=== PATIENT | male | born 1965 | race Caucasian/White ===

== ENCOUNTER 2017-07-28 17:20 | Emergency (ER) | payer MEDICAID, OTHER ==
[~2017-07-28] VITALS: Ht 175.3 cm; Wt 95.3 kg
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
[2017-07-28] MEDS ORDERED: ONDANSETRON HCL/PF 4 MG/2 ML VIAL ONE (17:51)
[2017-07-28] MEDS ORDERED: MORPHINE SULFATE INJ 4 MG/ML DISP.SYRIN ONE (17:52)
[2017-07-28] MEDS ORDERED: MORPHINE SULFATE INJ 2 MG/ML DISP.SYRIN IV ONE (18:00)
[2017-07-28] MEDS ORDERED: ONDANSETRON HCL/PF 4 MG/2 ML VIAL IVP ONE (18:00)
--- NOTE | 2017-07-28 18:01 | NUR ---
URINE AND BLOOD SAMPLE SENT TO LAB
[2017-07-28 18:05] LABS: BASOPHILS % (AUTO) 0.3 % (0.0-2.0); EOSINOPHILS % (AUTO) 0.4 % (0.0-6.0); HEMATOCRIT 45 % (39-51); HEMOGLOBIN 15.7 g/dL (13.5-17.5); LYMPHOCYTES # (AUTO) 1.5 /CMM (0.8-4.8); LYMPHOCYTES % (AUTO) 12.8 % (20.0-44.0); MEAN CORPUSCULAR HEMOGLOBIN 32 PG (26.0-33.0); MEAN CORPUSCULAR HGB CONC 35 g/dl (31.0-36.0); MEAN CORPUSCULAR VOLUME 90 fL (80-96); MONOCYTES # (AUTO) 0.8 /CMM (0.1-1.30); MONOCYTES % (AUTO) 6.3 % (2.0-12.0); NEUTROPHILS # (AUTO) 9.6 /CMM (1.8-8.9); NEUTROPHILS % (AUTO) 80.2 % (43.0-81.0); PLATELET COUNT (AUTO) 193 /CMM (150-450); RDW COEFFICIENT OF VARIATION 13.1 (11.5-15.0); RED BLOOD CELL COUNT(AUTO) 4.95 MIL/uL (4.5-6.0)
[2017-07-28 18:11] LABS: APPEARANCE,URINE CLEAR (CLEAR); BILIRUBIN,URINE NEGATIVE (NEGATIVE); BLOOD, URINE NEGATIVE Ery/uL (NEGATIVE); COLOR,URINE YELLOW (YELLOW); KETONES,URINE NEGATIVE (NEGATIVE); LEUKOCYTE ESTERASE ,URINE NEGATIVE (NEGATIVE); NITRITE, URINE NEGATIVE (NEGATIVE); PROTEIN,URINE NEGATIVE (NEGATIVE); UGLUCOSE NEGATIVE (NEGATIVE); UROBILINOGEN,URINE 0.2 EU/dL (0.2)
[2017-07-28 18:27] LABS: ALBUMIN 4.6 g/dL (3.4-5.0); BILIRUBIN,DIRECT 0.1 mg/dL (0.0-0.2); BILIRUBIN,TOTAL 0.8 mg/dL (0.2-1.0); CALCIUM, SERUM 9.3 mg/dL (8.5-10.1); CREATININE 1.2 mg/dL (0.6-1.3); POTASSIUM 3.7 mmol/L (3.5-5.1); TOTAL PROTEIN, SERUM 8.3 g/dL (6.4-8.2)
[2017-07-28 21:01] VITALS: BP 122/80
--- NOTE | 2017-07-28 21:08 | NUR ---
Patient discharged to home in stable condition. Written and verbal after care instructions given. Patient verbalizes understanding of instruction.IV removed. Catheter intact and site benign. Pressure and 4x4 applied to site. No bleeding noted.
== END 2017-07-28 21:07 | disposition home or self-care (01) ==
LOC: ER 17:22
DX: R10.13 Epigastric pain (principal); R55 Syncope and collapse; R07.9 Chest pain, unspecified; F31.9 Bipolar disorder, unspecified
CPT/HCPCS: 36415; 70450; 71045; 76700; 80048; 80076; 81001; 83690; 85025; 85730; 87086; 99285; A4606; Z7610; 81000-TC; J2270; J2405

== ENCOUNTER 2017-08-20 13:41 | Emergency (ER) | payer MEDICAID ==
[~2017-08-20] VITALS: Ht 182.9 cm; Wt 102.1 kg
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
[2017-08-20 14:03] LABS: BASOPHILS # (AUTO) 0.2 /CMM (0.0-0.2); BASOPHILS % (AUTO) 2.5 % (0.0-2.0); EOSINOPHILS # (AUTO) 0.2 /CMM (0.0-0.7); EOSINOPHILS % (AUTO) 2.1 % (0.0-6.0); HEMATOCRIT 38 % (39-51); HEMOGLOBIN 13.1 g/dL (13.5-17.5); LYMPHOCYTES # (AUTO) 1.3 /CMM (0.8-4.8); LYMPHOCYTES % (AUTO) 16.8 % (20.0-44.0); MEAN CORPUSCULAR HEMOGLOBIN 31 PG (26.0-33.0); MEAN CORPUSCULAR HGB CONC 35 g/dl (31.0-36.0); MEAN CORPUSCULAR VOLUME 89 fL (80-96); MONOCYTES # (AUTO) 0.5 /CMM (0.1-1.30); MONOCYTES % (AUTO) 6.3 % (2.0-12.0); NEUTROPHILS # (AUTO) 5.7 /CMM (1.8-8.9); NEUTROPHILS % (AUTO) 72.3 % (43.0-81.0); PLATELET COUNT (AUTO) 214 /CMM (150-450); RDW COEFFICIENT OF VARIATION 12.4 (11.5-15.0); WHITE BLOOD COUNT (AUTO) 7.9 K/uL (4.3-11.0)
[2017-08-20 14:13] LABS: CALCIUM, SERUM 8.3 mg/dL (8.5-10.1); CARBON DIOXIDE 25 mmol/L (21-32); CHLORIDE 107 mmol/L (98-107); CREATININE 0.9 mg/dL (0.6-1.3); GLUCOSE 100 mg/dL (74-106); POTASSIUM 3.2 mmol/L (3.5-5.1); SODIUM SERUM 138 mmol/L (136-145); UREA NITROGEN, BLOOD 12 mg/dL (7-18)
[2017-08-20 14:17] LABS: INR 0.94 (0.85-1.15)
[2017-08-20 14:22] LABS: TROPONIN I < 0.017 ng/mL (0.00-0.056)
[2017-08-20] MEDS ORDERED: ASPIRIN EC 325 MG TABLET.DR PO ONE ×2 (14:40→15:00)
[2017-08-20 15:18] LABS: ACETAMINOPHEN < 2 ug/ml (10-30); ALCOHOL, BLOOD < 3 mg/dL (0-0); SALICYLATE 2.5 mg/dL (2.8-20.0)
--- NOTE | 2017-08-20 15:18 | NUR ---
Patient is resting comfortably in bed with eyes closed. Easily aroused. VSS
[2017-08-20 15:45] VITALS: BP 149/86
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
--- NOTE | 2017-08-20 15:53 | NUR ---
Patient does not wish to proceed with medical care recommended by Dr. DAKOTA JACKSON. Patient given information related to possible complications, up to and including , which could occur as a result of leaving the hospital at this time. Patient verbalizes understanding of risks involved due to leaving against medical advice. Patient has signed AMA form.
--- NOTE | 2017-08-20 16:06 | NUR ---
PATIENT LEFT THE ER WITH STEADY GAIT.
== END 2017-08-20 16:09 | disposition left against medical advice (07) ==
LOC: ER 13:42
DX: R07.9 Chest pain, unspecified (principal); G89.29 Other chronic pain; F31.9 Bipolar disorder, unspecified; Z88.8 Allergy status to other drugs, medicaments and biological substances; Z79.82 Long term (current) use of aspirin; Z53.20 Procedure and treatment not carried out because of patient's decision for unspecified reasons
CPT/HCPCS: 36415; 71045; 80048; 80329; 83880; 84484; 85025; 85730; 93005 ×2; 99285; A4606; G0480 ×2; Z7610

== ENCOUNTER 2017-09-07 23:56 | Emergency (ER) | payer MEDICAID ==
[~2017-09-07] VITALS: Ht 175.3 cm; Wt 90.7 kg
--- NOTE | 2017-09-08 00:05 | NUR ---
CALLED FOR TRIAG. PT YELLED AND THREW URINE THAT WAS GIVEN TO HIM FOR URINE SAMPLE CUP ON THE GROUND.
--- NOTE | 2017-09-08 00:59 | NUR ---
APPEARS SLEEPING IN THE CHAIR. WHEN WOKEN UP STATES "LET ME REST".
--- NOTE | 2017-09-08 01:29 | NUR ---
REMAINS "SLEEPING" AND "LEAVE ME ALONE" HE SAYS. CHARGE NURSE NOTIFIED.
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
--- NOTE | 2017-09-08 04:23 | NUR ---
PT BB SELF WITH C/O "I HAVE DEPRESSION AND WANT TO HURT SELF; AM TIRED". PT DENIES PLAN. PT AAOX4. RESP EVEN AND UNLABORED. NO S/S OF ACUTE DISTRESS NOTED. VSS. PT SAFETY AND COMFORT MEASURES IN PLACE. PT GOWNED PLACED ON MONITOR AND POX. AWAITING MD FOR EVAL.
[2017-09-08 04:39] LABS: BASOPHILS # (AUTO) 0.1 /CMM (0.0-0.2); EOSINOPHILS # (AUTO) 0.4 /CMM (0.0-0.7); EOSINOPHILS % (AUTO) 5.8 % (0.0-6.0); HEMATOCRIT 41 % (39-51); HEMOGLOBIN 14.1 g/dL (13.5-17.5); LYMPHOCYTES # (AUTO) 1.8 /CMM (0.8-4.8); LYMPHOCYTES % (AUTO) 22.8 % (20.0-44.0); MEAN CORPUSCULAR HEMOGLOBIN 31 PG (26.0-33.0); MEAN CORPUSCULAR HGB CONC 34 g/dl (31.0-36.0); MEAN CORPUSCULAR VOLUME 90 fL (80-96); MONOCYTES # (AUTO) 0.6 /CMM (0.1-1.30); MONOCYTES % (AUTO) 8.1 % (2.0-12.0); NEUTROPHILS # (AUTO) 4.8 /CMM (1.8-8.9); NEUTROPHILS % (AUTO) 62.3 % (43.0-81.0); PLATELET COUNT (AUTO) 217 /CMM (150-450); RDW COEFFICIENT OF VARIATION 12.8 (11.5-15.0); RED BLOOD CELL COUNT(AUTO) 4.55 MIL/uL (4.5-6.0); WHITE BLOOD COUNT (AUTO) 7.7 K/uL (4.3-11.0)
[2017-09-08 04:50] LABS: CALCIUM, SERUM 8.5 mg/dL (8.5-10.1); CARBON DIOXIDE 23 mmol/L (21-32); CHLORIDE 107 mmol/L (98-107); CREATININE 0.8 mg/dL (0.6-1.3); GLUCOSE 123 mg/dL (74-106); POTASSIUM 3.6 mmol/L (3.5-5.1); SODIUM SERUM 142 mmol/L (136-145); UREA NITROGEN, BLOOD 19 mg/dL (7-18)
[2017-09-08 05:00] LABS: ALANINE AMINOTRANSFERASE 39 U/L (12-78); ALBUMIN 3.7 g/dL (3.4-5.0); ALCOHOL, BLOOD < 3 mg/dL (0-0); ALKALINE PHOSPHATASE 129 U/L (46-116); ASPARTATE AMINOTRANSFERASE 27 U/L (15-37); BILIRUBIN,DIRECT 0.1 mg/dL (0.0-0.2); BILIRUBIN,TOTAL 0.6 mg/dL (0.2-1.0); TOTAL PROTEIN, SERUM 7.5 g/dL (6.4-8.2)
[2017-09-08 05:01] LABS: ACETAMINOPHEN 0 ug/ml (10-30); SALICYLATE 1.7 mg/dL (2.8-20.0)
--- NOTE | 2017-09-08 05:37 | NUR ---
Patient is resting comfortably in bed with eyes closed. Easily aroused. VSS
--- NOTE | 2017-09-08 06:18 | NUR ---
Patient is resting comfortably in bed with eyes closed. Easily aroused. VSS
--- NOTE | 2017-09-08 06:44 | NUR ---
AWAITING PSYCH EVAL. CRISIS TEAM CALLED AND WAS NOTIFIED BY JACQUE BRAXTON TO CALL BACK AT [phone]. MD JUSTICE.
--- NOTE | 2017-09-08 07:07 | NUR ---
REPORT GIVEN TO ELIANA LATHAM FOR NAM.
--- NOTE | 2017-09-08 07:08 | NUR ---
RECEIVED REPORT FOR NAM.
[2017-09-08 08:04] VITALS: BP 157/99
--- NOTE | 2017-09-08 08:10 | NUR ---
JAYSON HOYOS CALLED FOR EVAL
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
--- NOTE | 2017-09-08 09:58 | NUR ---
Patient eloped from facility. ER MD notified.
== END 2017-09-08 09:58 | disposition left against medical advice (07) ==
LOC: ER 23:56
DX: F15.10 Other stimulant abuse, uncomplicated (principal); F31.9 Bipolar disorder, unspecified; Z76.5 Malingerer [conscious simulation]; Z88.8 Allergy status to other drugs, medicaments and biological substances
CPT/HCPCS: 36415; 80048-TC; 80076-TC; 80305; 85025-TC; 86403-TC; 87070-TC; A4606; G0480; Z7610

== ENCOUNTER 2017-12-28 08:17 | Emergency (ER) | payer MEDICAID ==
[~2017-12-28] VITALS: Ht 180.3 cm; Wt 88.5 kg
[2017-12-28] MEDS ORDERED: CEPHALEXIN MONOHYDRATE 500 MG CAPSULE PO ONE ×2 (08:25→08:30)
[2017-12-28 08:26] VITALS: BP 145/68
[2017-12-28] MEDS ORDERED: SULFAMETH/TRIMETH 800/160 MG 1 UDTAB TABLET PO ONE ×2 (08:26→08:30)
== END 2017-12-28 09:31 | disposition home or self-care (01) ==
LOC: ER 08:18
DX: L03.116 Cellulitis of left lower limb (principal); F31.9 Bipolar disorder, unspecified; Z88.8 Allergy status to other drugs, medicaments and biological substances
CPT/HCPCS: 99283; A4606; Z7610

== ENCOUNTER 2019-03-17 15:56 | Emergency (ER) | payer MEDICAID ==
[~2019-03-17] VITALS: Ht 177.8 cm; Wt 79.4 kg
[2019-03-17 16:33] VITALS: BP 132/74
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
--- NOTE | 2019-03-17 17:24 | NUR ---
SEEN AND EXAMINED BY
--- NOTE | 2019-03-17 17:30 | NUR ---
TEDDY KEITA AT BEDSIDE FOR BLOOD DRAW.
[2019-03-17 17:38] LABS: BASOPHILS # (AUTO) 0.1 /CMM (0.0-0.2); BASOPHILS % (AUTO) 1.1 % (0.0-2.0); EOSINOPHILS % (AUTO) 4.7 % (0.0-6.0); HEMATOCRIT 40 % (39-51); HEMOGLOBIN 14.1 g/dL (13.5-17.5); LYMPHOCYTES # (AUTO) 1.5 /CMM (0.8-4.8); LYMPHOCYTES % (AUTO) 20.4 % (20.0-44.0); MEAN CORPUSCULAR HGB CONC 35 g/dl (31.0-36.0); MEAN CORPUSCULAR VOLUME 89 fL (80-96); MONOCYTES # (AUTO) 0.6 /CMM (0.1-1.30); MONOCYTES % (AUTO) 8.8 % (2.0-12.0); NEUTROPHILS # (AUTO) 4.8 /CMM (1.8-8.9); PLATELET COUNT (AUTO) 179 /CMM (150-450); RED BLOOD CELL COUNT(AUTO) 4.54 MIL/uL (4.5-6.0); WHITE BLOOD COUNT (AUTO) 7.3 K/uL (4.3-11.0)
[2019-03-17 17:45] LABS: CALCIUM, SERUM 8.3 mg/dL (8.5-10.1); CARBON DIOXIDE 25 mmol/L (21-32); CHLORIDE 105 mmol/L (98-107); CREATININE 1.1 mg/dL (0.6-1.3); GLUCOSE 123 mg/dL (74-106); POTASSIUM 3.7 mmol/L (3.5-5.1); SODIUM SERUM 140 mmol/L (136-145); UREA NITROGEN, BLOOD 15 mg/dL (7-18)
--- NOTE | 2019-03-17 17:46 | NUR ---
URINAL GIVEN, PT UNABLE TO PROVIDE URINE SPECIMEN.
[2019-03-17 17:50] LABS: ALANINE AMINOTRANSFERASE 25 U/L (12-78); ALBUMIN 3.5 g/dL (3.4-5.0); ALCOHOL, BLOOD < 3 mg/dL (0-0); ALKALINE PHOSPHATASE 123 U/L (46-116); ASPARTATE AMINOTRANSFERASE 15 U/L (15-37); BILIRUBIN,DIRECT 0.1 mg/dL (0.0-0.2); BILIRUBIN,TOTAL 0.2 mg/dL (0.2-1.0); SALICYLATE 1.3 mg/dL (2.8-20.0); TOTAL PROTEIN, SERUM 6.4 g/dL (6.4-8.2)
[2019-03-17 17:51] LABS: ACETAMINOPHEN < 2 ug/ml (10-30)
--- NOTE | 2019-03-17 18:30 | NUR ---
URINE SPECIMEN COLLECTED AND SENT TO LAB
[2019-03-17 18:36] LABS: APPEARANCE,URINE Clear (CLEAR); BILIRUBIN,URINE Negative (NEGATIVE); BLOOD, URINE Negative Ery/uL (NEGATIVE); COLOR,URINE Yellow (YELLOW); KETONES,URINE Negative (NEGATIVE); LEUKOCYTE ESTERASE ,URINE Negative (NEGATIVE); NITRITE, URINE Negative (NEGATIVE); PH,URINE 5.5 (5.0-8.0); PROTEIN,URINE Negative (NEGATIVE); UGLUCOSE 100 MG/DL mg/dL (NEGATIVE); UROBILINOGEN,URINE 0.2 EU/dL (0.2)
--- NOTE | 2019-03-17 18:40 | NUR ---
JAYDEN RN AT BEDSIDE FOR PSYCH EVAL.
--- NOTE | 2019-03-17 20:07 | NUR ---
ACCEPTED TO [facility]: ext [phone] hwang
--- NOTE | 2019-03-17 20:15 | NUR ---
Ambulance eta [id number], Trip number [id number]
--- NOTE | 2019-03-17 20:17 | NUR ---
report given to fredy mitchell
--- NOTE | 2019-03-17 22:22 | NUR ---
CALLED [facility] FOR UPDATED ETA 22:45-23:00
== END 2019-03-17 23:34 | disposition home or self-care (01) ==
LOC: ER 16:01
DX: R45.851 Suicidal ideations (principal); Z88.8 Allergy status to other drugs, medicaments and biological substances; Z59.0 Homelessness
CPT/HCPCS: 36415; 80048; 80076; 80305; 80307; 80329; 81001; 85025; 99284; G0480; 81000-TC

== ENCOUNTER 2019-05-03 22:27 | Emergency (ER) | payer BC ==
--- NOTE | 2019-05-03 22:39 | NUR ---
PT CALLED TO TRIAGE WHEN PT WAS ASKED WHAT CAN I DO FOR HIM, PT STARTED SCREAMING FOR ME "I NEED A FUCKING ICE PACK, I AM NOT TALKING TO YOU UNTIL YOU GIVE ME WHAT I WANT". ADVICE PT TO CALM DOWN DUE TO THERE WAS PT'S AROUND, PT KEPT ON CURSING TOWARDS ME. PT WAS PROVIDED ICE PACK REQUESTED AND WALK OUT TO SIT IN THE WAITING ROOM AND REFUSES TO ANSWER WHEN ASKED WETHER HE WANTS TO BE SEEN BY THE DOCTOR.
--- NOTE | 2019-05-03 23:01 | NUR ---
CALLED PT TO BE TRIAGED, PT REFUSE AND STATES "I WILL SIT HERE UNTIL I AM READY, YOU CAN WAIT UNTIL THEN".
--- NOTE | 2019-05-03 23:19 | NUR ---
PT STATES "I'M STILL NOT READY FOR YOU". PT REFUSING TO BE TRIAGED.
--- NOTE | 2019-05-04 01:09 | NUR ---
CALLED PT FOR TRIAGE. NO ANSWER, PT ASLEEP IN THE WAITING ROOM.
--- NOTE | 2019-05-04 01:56 | NUR ---
CALLED PT FOR TRIAGE. NO ANSWER, PT REMAINS ASLEEP IN THE WAITING ROOM.
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
== END 2019-05-04 03:10 | disposition home or self-care (01) ==
LOC: ER 22:30
DX: Z53.21 Procedure and treatment not carried out due to patient leaving prior to being seen by health care provider (principal)
CPT/HCPCS: J7040

== ENCOUNTER 2019-05-08 19:16 | Emergency (ER) | payer BC ==
[~2019-05-08] VITALS: Ht 180.3 cm; Wt 85.7 kg
--- NOTE | 2019-05-08 20:27 | NUR ---
Pt called to triage pt not in waiting room
[2019-05-08 22:19] VITALS: BP 132/81
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
== END 2019-05-08 22:58 | disposition home or self-care (01) ==
LOC: ER 19:17
DX: L03.012 Cellulitis of left finger (principal); F31.9 Bipolar disorder, unspecified; Z88.9 Allergy status to unspecified drugs, medicaments and biological substances; Z59.0 Homelessness

== ENCOUNTER 2019-09-13 19:30 | Emergency (ER) | payer BC ==
--- NOTE | 2019-09-13 19:41 | NUR ---
CALLED FOR TRIAGE, NO ANSWER.
--- NOTE | 2019-09-13 19:45 | NUR ---
CALLED FOR TRIAGE, NO ANSWER.
--- NOTE | 2019-09-13 19:50 | NUR ---
CALLED FOR TRIAGE, NO ANSWER.
--- NOTE | 2019-09-13 20:04 | NUR ---
CALLED FOR TRIAGE, NO ANSWER.
== END 2019-09-13 20:04 | disposition home or self-care (01) ==
LOC: ER 19:38
DX: M79.606 Pain in leg, unspecified (principal); Z53.21 Procedure and treatment not carried out due to patient leaving prior to being seen by health care provider